=== PATIENT | female | born 1980 | race Caucasian/White ===

== ENCOUNTER 2020-12-20 14:38 | Emergency (ER) | payer MEDICARE, MEDICAID, SELFPAY ==
[2020-12-20 14:52] VITALS: BP 159/103; PULSE 88; RESP 16; TEMP 36.1; O2SAT 98; BMI 22.7
--- NOTE | 2020-12-20 14:55 | XR_ITS ---
EXAMINATION: XR ANKLE, RIGHT CLINICAL INFORMATION: Ankle pain COMPARISON: None TECHNIQUE: AP, lateral, and mortise views of the right ankle. FINDINGS: There is no fracture or dislocation. No destructive process. The ankle mortise is symmetric. The talar dome shows no osteochondral lesion. There is soft tissue swelling overlying the medial and lateral malleolus. Probable ankle capsular effusion. Bony density is normal. There is no periarticular demineralization, joint narrowing, or erosive change. The subtalar joint is unremarkable. The retrocalcaneal recess is preserved. There is a borderline posterior calcaneal spur. XR/XR ankle RT min 3V IMPRESSION: 1. Soft tissue swelling. Probable ankle capsular effusion. 2. No fracture, joint narrowing, erosive change, or destructive process.
--- NOTE | 2020-12-20 15:12 | US_ITS ---
EXAMINATION: US VENOUS ULTRASOUND WITH DOPPLER LOWER EXTREMITY, RIGHT CLINICAL INFORMATION: Leg pain and swelling for one month distal right lower extremity. Assess for occult DVT. COMPARISON: Radiographs right ankle 12/20/2020 TECHNIQUE: Ultrasound of the deep veins is performed from the hip to the calf with compression sonography and color and pulse Doppler assessment. Spectral analysis with color-flow imaging is performed. FINDINGS: There is normal venous compression and respiratory variation and augmented flow. The visualized common femoral vein, superficial femoral vein, profunda femoral vein, popliteal vein, and the trifurcation region shows no evidence of deep venous thrombosis. There is no popliteal fossa cyst. There is an irregular soft tissue fluid collection in ankle region, area of concern as directed by patient. The dimensions are approximately 3.5 x 1.1 x 2.1 cm. There is no surrounding or internal hyperemia on color Doppler. US/US venous duplex LE RT IMPRESSION: 1. No DVT demonstrated in the right lower extremity. 2. Irregular shaped soft tissue fluid collection and ankle region, area of concern as directed by patient measuring 3.5 x 1.1 x 2.1 cm. No internal or peripheral hyperemia on color Doppler. If clinically indicated, further assessment of the ankle soft tissues may be considered with MRI without and with gadolinium contrast.
[2020-12-20] MEDS: Ibuprofen 800 MG TABLET PO (15:29)
[2020-12-20] MEDS: HYDROcodone Bit/Acetam 5/325 TABLET 1 TAB PO (15:30)
--- NOTE | 2020-12-20 16:09 | ED.LOWEXIN ---
HPI - Extremity Injury (Lower) General Chief Complaint: Extremity Injury, Lower Stated Complaint: R ANKLE PAIN Time Seen by Provider: 12/20/20 14:55 Source: patient Mode of arrival: ambulatory Limitations: no limitations History of Present Illness HPI Narrative: 40yoF c PMHx of bipolar 1 disorder, ADHD, anxiety and PTSD disorder presenting to the ED with complaints of right ankle pain /swelling over the past month. Denies any injury. She reports the pain radiates up to her right calf. Denies any Dizziness, headaches, changes in vision, nausea / vomiting, chest pain, shortness of breath, dyspnea on exertion, orthopnea, palpitations or any other symptoms complaints or concerns at this time. Related Data Previous Rx's Medication Instructions Recorded cane #1 ea 12/20/20 ibuprofen 800 mg PO Q8H PRN #14 tab 12/20/20 oxycodone-acetaminophen [Percocet] 1 tab PO Q6H PRN #10 tab 12/20/20 Allergies Allergy/AdvReac Type Severity Reaction Status Date / Time oxcarbazepine AdvReac Unknown Verified 12/20/20 14:52 [From Trileptal] zolpidem [From Ambien] AdvReac Hallucinati Verified 12/20/20 14:52 ons Review of Systems Review of Systems: Constitutional : no fevers, no chills Eyes: No Eye Pain, No Swelling, No Vision Changes Cardiovascular : No Chest Pain, No SOB, no palpitations, no dyspnea on exertion, no orthopnea Respiratory : No Cough Musculoskeletal : + joint pain/swelling, No neck stiffness, No back pain/injury Skin : No lacerations Neuro : No unsteady gait, No Paresthesias, No Headache Yes all other systems are reviewed and are negative [facility] Past Medical History Attestation statement: The following information was validated with the patient. Medical History ADHD Anxiety Bipolar 1 disorder PTSD (post-traumatic stress disorder) Surgical History History of appendectomy Previous section Social History Social History Smoking Status: Current every day smoker Use of substances other than those prescribed or required for medical reasons: No Advance Directives: No Advance Directives Information Provided: No Physical Exam Vital Signs: Vital Signs: Last Vital Signs Temp 97.0 F 12/20/20 14:52 Pulse 88 12/20/20 14:52 Resp 16 12/20/20 14:52 BP 159/103 H 12/20/20 14:52 Pulse Ox 98 12/20/20 14:52 Body Mass Index 22.7 vital signs have been reviewed as normal and appeared to be correct. Blood pressure normal. Heart rate normal. Respiration rate normal. Temperature normal. Oxygen saturation normal. Appearance: Alert. Oriented X3. No acute distress. Head: Normal external exam. Normocephalic. Atraumatic. Eyes: PERRLA. EOMI. Conjunctiva and sclera normal. Eyelids normal. ENT: Pharynx normal. Uvula midline. Moist mucous membranes. Neck: Normal inspection. Neck supple. FROM. No adenopathy. No meningeal signs. CVS: Normal heart rate and rhythm. Heart sound normal. No murmurs noted. Pulses normal throughout. Respiratory: No respiratory distress. Painless inspiration. Breath sounds normal. No wheezes/rales/rhonchi noted. Chest nontender. No accessory muscle usage noted or decreased air movement noted. Back: Full range of motion noted. Skin: Skin warm and dry. Normal skin color. Normal skin turgor. No rashes/lesions/lacerations noted. Extremities: patient with tenderness to palpation of medial and lateral aspect of right ankle with mild soft tissue swelling. No obvious deformities noted. No laxity noted. Patient has a normal steady gait. Patient does have right calf tenderness noted although No lower extremity edema. otherwise all other Extremities exhibit normal range of motion and nontender. Neuro: Oriented X 3. No motor deficit. No sensory deficit. Reflexes normal. Course Course Course Narrative: 15:15pm - 40yoF c PMHx of bipolar 1 disorder, ADHD, anxiety and PTSD disorder presenting to the ED with complaints of right ankle pain /swelling over the past month. Denies any injury. She reports the pain radiates up to her right calf. - Concern for DVT vs FX vs sprain - Plan: Xray of Right ankle and US of RLE for DVT. provide 100 mg of Motrin and 5 mg of Allen then re-evaluate. Reevaluation(s) Reevaluation #1: - X-ray revealed right Ankle capsular effusion otherwise no other acute processes noted. Ultrasound negative for DVT. - no signs of infection no erythema/ streaking /induration or fluctuance noted. Will DC home with symptomatic treatment along with referral to Orthopedics and instructions return if any new or worsening symptoms. Patient understands agrees the plan. Time: 17:13 MDM - Extremity Injury (Lower) Medical Records Attestation: I reviewed the patient's medical records. Imaging Data Right ankle x-ray: Attestation: I personally reviewed and interpreted this imaging study as follows: Radiologist's impression: FINDINGS: There is no fracture or dislocation. No destructive process. The ankle mortise is symmetric. The talar dome shows no osteochondral lesion. There is soft tissue swelling overlying the medial and lateral malleolus. Probable ankle capsular effusion. Bony density is normal. There is no periarticular demineralization, joint narrowing, or erosive change. The subtalar joint is unremarkable. The retrocalcaneal recess is preserved. There is a borderline posterior calcaneal spur. XR/XR ankle RT min 3V IMPRESSION: 1. Soft tissue swelling. Probable ankle capsular effusion. 2. No fracture, joint narrowing, erosive change, or destructive process. Venous Doppler of right lower extremity: Attestation: I personally reviewed and interpreted this imaging study as follows: Radiologist's impression: FINDINGS: There is normal venous compression and respiratory variation and augmented flow. The visualized common femoral vein, superficial femoral vein, profunda femoral vein, popliteal vein, and the trifurcation region shows no evidence of deep venous thrombosis. There is no popliteal fossa cyst. There is an irregular soft tissue fluid collection in ankle region, area of concern as directed by patient. The dimensions are approximately 3.5 x 1.1 x 2.1 cm. There is no surrounding or internal hyperemia on color Doppler. US/US venous duplex LE RT IMPRESSION: 1. No DVT demonstrated in the right lower extremity. 2. Irregular shaped soft tissue fluid collection and ankle region, area of concern as directed by patient measuring 3.5 x 1.1 x 2.1 cm. No internal or peripheral hyperemia on color Doppler. If clinically indicated, further assessment of the ankle soft tissues may be considered with MRI without and with gadolinium contrast. Discharge Plan Discharge Clinical Impression: Effusion of ankle joint, right Patient Disposition: Home, Self-Care Instructions: Swollen Ankle Joint (ED) Prescriptions: New ibuprofen 800 mg tablet 800 mg PO Q8H PRN (Reason: pain) Qty: 14 RF: 0 oxycodone-acetaminophen [Percocet] 5-325 mg tablet 1 tab PO Q6H PRN (Reason: pain) Qty: 10 RF: 0 (DME) cane Device See Rx Instructions .ROUTE .MEDSUPPLY Qty: 1 RF: 0 Referrals: Ed Doan MD [Physician] - 1 week Stand Alone Forms: Work/School Release
--- NOTE | 2020-12-20 17:51 | PC.NURSE ---
SEBASTIÁN WRAP APPLIED. PATIENT STATING SHE DIDNT WANT CRUTCHES AND THAT SHE WANTED A CANE. WOULD FEEL MORE COMFORTABLE. THEN PATIENT STATED SHE WANTED THE CRUTCHES. CRUTCHES GIVEN AND PATIENT EDUCATED.
[2020-12-20 17:58] VITALS: BP 145/98; PULSE 78; RESP 16; TEMP 36.1; O2SAT 100
== END 2020-12-20 17:59 | disposition home or self-care (01) ==
PROVIDERS: Emergency Provider Emergency Medicine; PCP Internal Medicine
DX: M25.471 Effusion, right ankle (principal); M25.571 Pain in right ankle and joints of right foot; M79.661 Pain in right lower leg
CPT/HCPCS: 73610; 93971; 99284

== ENCOUNTER 2020-12-29 14:49 | Outpatient (REF) | payer MEDICARE, MEDICAID, SELFPAY | END 2020-12-29 14:50 | disposition home or self-care (01) | LOC: HO.LAB 14:49 | PROVIDERS: Visit Provider Internal Medicine | DX: Z20.822 Contact with and (suspected) exposure to COVID-19 (principal) | CPT/HCPCS: 36415; C9803; U0003; U0005 ==

== ENCOUNTER → 2020-12-30 12:56 | Outpatient (BNVA) | payer MEDICARE, MEDICAID, SELFPAY | PROVIDERS: PCP Internal Medicine; Visit Provider Physician Assistant | DX: Z13.89 Encounter for screening for other disorder (principal) | CPT/HCPCS: 99202 ==

== ENCOUNTER 2021-01-18 10:16 | Outpatient (REF) | payer MEDICARE, MEDICAID, SELFPAY ==
--- NOTE | ~2021-01-18 | MR_ITS ---
EXAMINATION: MR ANKLE WITHOUT CONTRAST, RIGHT CLINICAL INFORMATION: Effusion right ankle. Patient reports swelling, pain. Symptoms for 1 year. COMPARISON: X-ray 12/20/2020 TECHNIQUE: MRI of the ankle without contrast is performed in a 1.5 Holley high-field scanner. FINDINGS: BONE/JOINTS: Moderate talocrural joint effusion, with prominent capsular thickening, synovitis. Complex contents, loose bodies are difficult exclude. Differential consideration include inflammatory, infectious processes. There is a 1.4 x 1.0 x 1.3 cm focus in the medial malleolus, with a mixture of bright and low T2 signal, with surrounding marrow edema. This is nonspecific in nature, and may be related to the cause of the arthropathy. Small posterior subtalar joint effusion. No evidence of acute fracture. MUSCLES/TENDONS: Mild posterior tibial tenosynovitis and peritendinitis. Posterior tibial tendon is intact. FDL, FHL tendons are intact. Peroneal, extensor tendons are intact. LIGAMENTS: Grade 2 sprain/partial tear of the anterior talofibular ligament. Posterior talofibular, tibiofibular ligaments are intact. Calcaneofibular ligament is intact. Sprain deltoid ligament. ACHILLES TENDON: Intact. PLANTAR FASCIA: Intact. SINUS TARSI: Normal signal. TARSAL TUNNEL : No mass lesion. SUBCUTANEOUS SOFT TISSUES: Subcutaneous edema. MR/MR ankle RT wo con IMPRESSION: 1. Moderate talocrural joint effusion, with synovitis and capsular thickening. Complexity of the joint contents, loose bodies are difficult exclude. Differential consideration include inflammatory, infectious, crystalline arthropathy. Recommend clinical correlation and management. Further evaluation with joint aspiration can be obtained as clinically warranted. 2. There is a nonspecific heterogeneous T2 bright focus with surrounding marrow edema in the medial malleolus. This is of uncertain etiology. This may be related to the etiology causing the arthropathy. Please clinically correlate and manage. Recommend follow-up imaging to ensure stability/resolution. 3. Grade 2 sprain/partial tear anterior talofibular ligament. Sprain deltoid ligament. 4. Mild posterior tibial tenosynovitis and peritendinitis.
--- NOTE | 2021-01-18 11:52 | ECG_ITS ---
Test Reason : CHECK QT PROLONGATIO Blood Pressure : / mmHG Vent. Rate : 074 BPM Atrial Rate : 074 BPM P-R Int : 156 ms QRS Dur : 088 ms QT Int : 416 ms P-R-T Axes : 041 003 014 degrees QTc Int : 461 ms Normal sinus rhythm Normal ECG No previous ECGs available Referred By: Veronica Fuentes Electronically Signed By:JOHNATHAN HENDRICKS MD
== END 2021-01-18 10:17 | disposition home or self-care (01) ==
LOC: HO.MRI 10:16
PROVIDERS: Visit Provider Physician Assistant
DX: M25.471 Effusion, right ankle (principal); Z79.899 Other long term (current) drug therapy
CPT/HCPCS: 73721; 93005

== ENCOUNTER → 2021-01-27 13:00 | Outpatient (BNVA) | payer MEDICARE, MEDICAID, SELFPAY | PROVIDERS: PCP Internal Medicine; Visit Provider Physician Assistant | DX: M25.471 Effusion, right ankle (principal) | CPT/HCPCS: 99212 ==

== ENCOUNTER → 2021-02-17 09:45 | Outpatient (BNVA) | payer MEDICARE, MEDICAID, SELFPAY | PROVIDERS: PCP Internal Medicine; Visit Provider Physician Assistant ==

== ENCOUNTER 2021-02-27 13:29 | Outpatient (REF) | payer MEDICARE, MEDICAID, SELFPAY ==
--- NOTE | ~2021-02-27 | FL_ITS ---
EXAMINATION: FL FLUOROSCOPIC GUIDED ANKLE ASPIRATION, RIGHT CLINICAL INFORMATION: Chronic pain and swelling right ankle. Ankle effusion on MRI with capsular thickening. Aspiration for laboratories requested. COMPARISON: MRI right ankle 01/18/2021, radiographs right ankle 12/20/2020. TECHNIQUE: Proper informed consent is obtained from the patient after discussion of the procedure, potential risks and complications, and alternatives including declining the procedure today. Patient was given an opportunity for questions. The patient appeared to understand. The patient consented to the procedure and signed the consent form. Skin is prepped and draped. Local anesthesia is provided using 3 cc lidocaine 1%. Under fluoroscopic guidance, a 23-gauge needle with short connecting tube was positioned into the ankle joint capsule from an anterior approach. Needle tip overlies the anterior mid tibiotalar joint on fluoroscopy. Approximately 4 mL of serosanguineous fluid aspirated into syringe. Radiography technologist divided sample into three laboratory tubes provided for the aspiration procedure. The patient tolerated the procedure well and had no immediate complication. Sterile dressing was placed and home instructions reviewed with the patient. Fluoroscopy time: 0.7 minutes Total Dose: 2.66 mGy Images: 7 FL/FL guided aspiration med jt IMPRESSION: 1. Status post fluoroscopic guided right ankle aspiration. 2. 4 mL serosanguineous fluid aspirated. Laboratories pending.
== END 2021-02-27 13:30 | disposition home or self-care (01) ==
LOC: HO.XRAY 13:29
PROVIDERS: Visit Provider Physician Assistant
DX: M25.471 Effusion, right ankle (principal)
CPT/HCPCS: 20605; 77002; 87071; 87073; 87205; 89060

== ENCOUNTER → 2021-03-09 13:43 | Outpatient (BNVA) | payer MEDICARE, MEDICAID, SELFPAY | PROVIDERS: PCP Internal Medicine; Visit Provider Physician Assistant | DX: M25.471 Effusion, right ankle (principal) | CPT/HCPCS: 99212 ==

== ENCOUNTER → 2021-04-10 13:46 | Outpatient (BNVA) | payer MEDICARE, MEDICAID, SELFPAY | PROVIDERS: PCP Internal Medicine; Visit Provider Physician Assistant | DX: M25.471 Effusion, right ankle (principal) | CPT/HCPCS: 99202 ==

== ENCOUNTER 2021-06-29 14:00 | Outpatient (RCR) | payer MEDICARE, MEDICAID, SELFPAY ==
--- NOTE | 2021-04-06 13:15 | MHC.PT.EP ---
[facility] [place] Office [place] Office [place] Office [address] Phillip Edgar [address] [phone] F: [phone] F: [phone] F: [phone] F: [phone] Physical Therapy Plan of Care Date of Evaluation: Date of Surgery: Diagnosis: right ankle effusion Assessment: The patient arrived reporting right ankle pain. The patient had reduced ankle ROM due to pain. Poor strength and poor ankle proprioception noted. Pt walked with cane in right hand. Pt shown how to use cane in left hand. The patient reports having many appointments and only wants to come 1x/week. She is an excellent candidate for skilled PT to improve ankle strength and ROM. Frequency and Duration: The patient will be seen 1x/week x 4 weeks. Short Term Goals: 1. The patient is to be able to show improved ankle stability noted by improved single leg stance. 2. Pt to be able to walk with a heel to toe reciprocal gait pattern with adequate toe clearance. Usp Goals: 1. The patient to be able to go up and down stairs without pain 2. The patient to be able to improve strength in all different directions by 1/2 muscle grade. 3. The patient to be able to return to all functional directions without pain. 4. Pt to be able to stand stand SLS for greater than 10 sec without LOB. Treatment Plan: Modalities to reduce pain, spasms and effusion. Manual therapy to restore motion and function. Therapeutic exercise to improve strength and flexibility. Neuromuscular re-education for posture and balance. Therapeutic activities to return to functional activities of daily living. Electronically signed by: Ruth Rae PT DPT Please sign and return to therapist. Thank you for your referral.
== END 2021-11-21 09:49 | disposition home or self-care (01) ==
LOC: HO.PT 14:00
PROVIDERS: PCP Internal Medicine; Visit Provider Physician Assistant
DX: M25.471 Effusion, right ankle (principal)
CPT/HCPCS: 97110; 97112; 97116; 97162; 97530

== ENCOUNTER → 2021-08-24 10:56 | Outpatient (BNVA) | payer MEDICARE, MEDICAID, SELFPAY | PROVIDERS: PCP Internal Medicine; Referring Provider Internal Medicine; Visit Provider Physician Assistant Surgical ==

== ENCOUNTER → 2021-09-07 08:00 | Outpatient (BNVA) | payer MEDICARE, MEDICAID, SELFPAY | PROVIDERS: PCP Internal Medicine; Visit Provider Surgery | DX: Z13.89 Encounter for screening for other disorder (principal) | CPT/HCPCS: Q3014 ==

== ENCOUNTER → 2021-10-04 10:24 | Outpatient (BNVA) | payer MEDICARE, MEDICAID, SELFPAY | PROVIDERS: PCP Internal Medicine; Visit Provider Surgery | DX: E66.01 Morbid (severe) obesity due to excess calories (principal); Z68.41 Body mass index [BMI] 40.0-44.9, adult | CPT/HCPCS: Q3014 ==

== ENCOUNTER → 2021-10-11 08:05 | Outpatient (BNVA) | payer MEDICARE, MEDICAID, SELFPAY | PROVIDERS: PCP Internal Medicine; Visit Provider Dietitian, Registered | DX: E66.01 Morbid (severe) obesity due to excess calories (principal) | CPT/HCPCS: 97802 ==

== ENCOUNTER 2021-10-23 08:15 | Outpatient (REF) | payer MEDICARE, MEDICAID, SELFPAY ==
--- NOTE | ~2021-10-23 | XR_ITS ---
EXAMINATION: XR CHEST CLINICAL INFORMATION: Obesity COMPARISON: None TECHNIQUE: 2 views of the chest were obtained. FINDINGS: No significant abnormality is noted involving the heart, lungs, mediastinum, bony thorax or soft tissues. XR/XR chest 2V IMPRESSION: Unremarkable examination.
--- NOTE | ~2021-10-23 | FL_ITS ---
EXAMINATION: FL UPPER GI AIR-CONTRAST STUDY CLINICAL INFORMATION: Obesity. COMPARISON: None TECHNIQUE: Routine upper GI air-contrast study was performed in upright and lying position. FINDINGS: Following oral administration of thick barium and effervescent granules, there is normal antegrade flow seen from the oral cavity through the esophagus into stomach without any evidence of obstruction, narrowing or stricture. The course, caliber and peristalsis of the stomach, duodenal bulb and the sweep are normal. The mucosal pattern of the stomach and the duodenum is normal. There is a large gastroesophageal reflux into the upper esophagus without hiatal hernia. FLUOROSCOPY TIME: 1.96 minutes DOSE AREA PRODUCT: 36.545 uGy-m2 (microgray-meter squared) FL/FL upper GI series IMPRESSION: Large gastroesophageal reflux without hiatal hernia. The rest of the upper GI exam is unremarkable.
--- NOTE | ~2021-10-23 | US_ITS ---
EXAMINATION: US COMPLETE ABDOMEN WITH LIVER ELASTOGRAPHY CLINICAL INFORMATION: Obesity COMPARISON: None. TECHNIQUE: Real-time imaging of the abdominal viscera. Noninvasive ultrasound liver fibrosis assessment is performed using Sukhwinder ElastPQ point quantification shear wave elastography (pSWE) with a C5-2 MHz transducer. Multiple elastography samples are obtained. FINDINGS: PANCREAS: Obscured by bowel gas. Partially visualized neck appears unremarkable. ABDOMINAL AORTA: Limited visualization proximal aorta. The remainder of the aorta is of normal caliber. . INFERIOR VENA CAVA: Visualized portions are normal. LIVER: Diffuse increased hepatic echogenicity. No focal lesions. No biliary duct dilatation. The right lobe measures 14.7 cm in length. The left lobe measures 11 cm in length. Portal flow is hepatopedal Shear wave liver elastography median stiffness is 1.36 m/s (reference: normal median stiffness is 1.3 m/s or less). IQR/median stiffness to assess sampling precision is 0.1 (reference: good quality data set is IQR/median stiffness of 0.15 or less). GALLBLADDER: Normal. The gallbladder is physiologically distended without evidence of stones, sludge, polyps, wall thickening or pericholecystic fluid. COMMON BILE DUCT: Normal in caliber measuring 0.4 cm in diameter. RIGHT KIDNEY: Normal. No hydronephrosis. No renal calculi or focal parenchymal lesions. The kidney measures 10.3 cm in maximum dimension. LEFT KIDNEY: Normal. No hydronephrosis. No renal calculi or focal parenchymal lesions. The kidney measures 9.9 cm in maximum dimension. SPLEEN: Normal. The spleen measures 9.3 cm in maximum dimension. FREE FLUID: None. US/US abdomen comp w elastography IMPRESSION: 1. There is generalized increase in hepatic echotexture, consistent with fatty infiltration or hepatocellular disease. Please correlate clinically. No focal hepatic mass or intrahepatic biliary duct dilatation is seen. 2. Liver elastography: Median stiffness 1.36 m/s . As per the attachment guidelines, Liver Stiffness less than 1.7 m/s: In the absence of other known clinical signs, rules out compensated advanced chronic liver disease. 3. Pancreas obscured by bowel gas. REFERENCE: Society of Radiologists in Ultrasound Liver Stiffness Thresholds (2020): LIVER STIFFNESS THRESHOLDS: *Liver Stiffness equal or less than 1.3 m/s: High probability of being normal. *Liver Stiffness less than 1.7 m/s: In the absence of other known clinical signs, rules out compensated advanced chronic liver disease. *Liver Stiffness 1.7-2.1 m/s: Suggestive of compensated advanced chronic liver disease but need further test for confirmation. *Liver Stiffness over 2.1 m/s: Rules in compensated advanced chronic liver disease. *Liver Stiffness over 2.4 m/s: Suggestive of clinically significant portal hypertension. QUALITY OF DATA SET: *IQR/Median value equal or less than 0.15 implies a quality data set. *IQR/Median value over 0.15 implies a poor quality data set. SIGNIFICANT CHANGE FROM PRIOR EXAM: Significant change if liver stiffness measurement is 10% or greater from prior exam. OTHER CONSIDERATIONS: The stage of liver fibrosis may be overestimated in the setting of acute hepatitis, liver inflammation, elevated liver function tests, hepatic vascular congestion, obstructive cholestasis, non-fasting state, and infiltrative diseases such as amyloidosis and lymphoma. In some patients with NAFLD, the liver stiffness thresholds for compensated advanced chronic liver disease may be lower. In causes other than viral hepatitis and NAFLD, liver stiffness thresholds are not well established.
[2021-10-23 08:36] LABS: MANUAL DIFF FLAG NO
[2021-10-23 08:54] LABS: Basophils Percent Auto 0.3 % (0-2); Eosinophils Absolute Auto 0.4 X10*3/uL (0.0-0.4); Hematocrit 38.5 % (37.0-47.0); Hemoglobin 12.5 g/dl (12.0-16.0); Imm Gran Abs Auto 0.05 X10*3/uL (0.00-0.03); Imm Gran Pct Auto 0.7 % (0.0-0.4); Lymphocytes Absolute Auto 2.7 X10*3/uL (1.2-4.9); Lymphocytes Percent Auto 35.2 % (20-40); Mean Corpuscular HGB Conc 32.5 g/dl (31.0-35.0); Mean Corpuscular Hemoglobin 28.8 pg (27.0-33.0); Mean Corpuscular Volume 88.7 fL (80.0-98.0); Mean Platelet Volume 10.2 fL (9.4-12.3); Monocytes Absolute Auto 0.6 X10*3/uL (0.1-1.2); Monocytes Percent Auto 8.3 % (2-11); Neutrophils Absolute Auto 3.9 x10*3/uL (2.0-8.3); Neutrophils Percent Auto 50.5 % (45-73); Platelet Count 225 X10*3/uL (160-400); Red Blood Count 4.34 X10*6/uL (4.20-5.50); Red Cell Distribution Width 12.9 % (11.0-16.0); White Blood Count 7.7 X10*3/uL (4.8-10.8)
[2021-10-23 08:59] LABS: Estimated Average Glucose 117 mg/dL; Hemoglobin A1c % 5.7 %
[2021-10-23 09:20] LABS: Alanine Aminotransferase 143 U/L (0-31); Albumin Level 4.1 g/dL (3.5-5.0); Alkaline Phosphatase 96 U/L (39-117); Anion Gap 13 (12-20); Aspartate Amino Transferase 114 U/L (5-31); Bilirubin Total 0.5 mg/dL (0.0-1.0); Blood Urea Nitrogen 25 mg/dL (9-16); C Reactive Protein 1.02 mg/dL (< or = 0.50); Calcium 9.7 mg/dL (8.4-10.2); Carbon Dioxide 26 mmol/L (22-29); Chloride 106 mmol/L (96-108); Cholesterol 226 mg/dL; Estimated Glomerular Filt Rate > 60; Glucose Random 110 mg/dL (60-115); HDL Cholesterol 41 mg/dL; Iron 115 mcg/dL (30-160); LDL Cholesterol Calculated 154 mg/dl; Percent Iron Saturation 26 % (15-50); Potassium 4.6 mmol/L (3.3-5.1); Sodium 140 mmol/L (135-145); Total Iron Binding Capacity 435 mcg/dL (228-428); Total Protein 7.3 g/dL (6.5-8.0); Triglycerides 156 mg/dL; Unsaturated Iron Binding 320 ug/dL
[2021-10-23 09:43] LABS: Ferritin 107 ng/mL (10-250); TSH reflex Free T4 2.56 uIU/mL (0.32-4.0); Vitamin D 25-OH Total 24.8 ng/mL (>30)
[2021-10-23 09:51] LABS: Folate 17.2 ng/mL (> or = 4.0); Insulin 13 uU/mL (2-29); Vitamin B12 914 pg/mL (200-900)
--- NOTE | 2021-10-23 10:35 | ECG_ITS ---
Test Reason : obesity Blood Pressure : / mmHG Vent. Rate : 049 BPM Atrial Rate : 049 BPM P-R Int : 170 ms QRS Dur : 088 ms QT Int : 484 ms P-R-T Axes : 024 018 021 degrees QTc Int : 437 ms Sinus bradycardia Nonspecific ST abnormality Anterior leads Abnormal ECG When compared with ECG of 18-JAN-2021 12:05, Vent. rate has decreased BY 25 BPM Referred By: Jose Gonzalez Electronically Signed By:SALVADOR JETER MD
[2021-10-24 14:51] LABS: Calcium (PTHI) 9.5 mg/dL (8.6-10.2); PTHI 42 pg/mL (14-64)
[2021-10-26 07:02] LABS: Zinc 76 mcg/dL (60-130)
[2021-10-27 01:36] LABS: Vitamin A 37 mcg/dL (38-98)
[2021-10-27 06:05] LABS: Vitamin B1 13 nmol/L (8-30)
== END 2021-10-23 08:16 | disposition home or self-care (01) ==
LOC: HO.US 08:15
PROVIDERS: PCP Internal Medicine; Visit Provider Surgery
DX: E66.9 Obesity, unspecified (principal); Z68.36 Body mass index [BMI] 36.0-36.9, adult; I10 Essential (primary) hypertension
CPT/HCPCS: 36415; 71046; 74240; 76705; 76981; 80053; 80061; 82306; 82607; 82728; 82746; 83036; 83525; 83540; 83970; 84425; 84443; 84590; 84630; 85025; 86140; 93005; 99211

== ENCOUNTER 2021-10-25 14:17 | Outpatient (REF) | payer MEDICARE, MEDICAID, SELFPAY ==
[2021-10-26 10:11] LABS: H Pylori Breath Test Negative (Negative)
== END 2021-10-25 14:18 | disposition home or self-care (01) ==
LOC: HO.LNP 14:17
PROVIDERS: Visit Provider Surgery
DX: E66.9 Obesity, unspecified (principal); Z68.36 Body mass index [BMI] 36.0-36.9, adult; I10 Essential (primary) hypertension
CPT/HCPCS: 83013

== ENCOUNTER → 2021-11-03 08:05 | Outpatient (BNVA) | payer MEDICARE, MEDICAID, SELFPAY | PROVIDERS: PCP Internal Medicine; Visit Provider Surgery | DX: Z13.89 Encounter for screening for other disorder (principal) | CPT/HCPCS: Q3014 ==

== ENCOUNTER → 2021-11-14 08:10 | Outpatient (BNVA) | payer MEDICARE, MEDICAID, SELFPAY | PROVIDERS: PCP Internal Medicine; Referring Provider Surgery; Visit Provider Dietitian, Registered | DX: E66.01 Morbid (severe) obesity due to excess calories (principal); Z68.41 Body mass index [BMI] 40.0-44.9, adult | CPT/HCPCS: 97803 ==

== ENCOUNTER → 2021-12-07 08:16 | Outpatient (BNVA) | payer MEDICARE, MEDICAID, SELFPAY | PROVIDERS: PCP Internal Medicine; Referring Provider Surgery; Visit Provider Dietitian, Registered ==

== ENCOUNTER → 2022-01-11 08:11 | Outpatient (BNVA) | payer MEDICARE, MEDICAID, SELFPAY | PROVIDERS: PCP Internal Medicine; Visit Provider Dietitian, Registered | DX: Z13.89 Encounter for screening for other disorder (principal) ==

== ENCOUNTER → 2022-01-23 08:18 | Outpatient (BNVA) | payer MEDICARE, MEDICAID, SELFPAY | PROVIDERS: PCP Internal Medicine; Visit Provider Dietitian, Registered | DX: Z13.89 Encounter for screening for other disorder (principal) ==

== ENCOUNTER → 2022-02-06 08:11 | Outpatient (BNVA) | payer OTHER, SELFPAY | PROVIDERS: PCP Internal Medicine; Visit Provider Dietitian, Registered | DX: E66.9 Obesity, unspecified (principal); Z71.3 Dietary counseling and surveillance | CPT/HCPCS: 97803 ==